=== PATIENT | female | born 1990 ===

== ENCOUNTER 2018-10-06 17:06 | Inpatient (IN) | payer OTHER ==
--- NOTE | 2018-10-06 19:28 | PDOC.FPROB ---
FMR OB H&P: HPI - History of Present Illness Chief Complaint: contractions Indentification: 28 year old at 40.3 wks History of Present Illness: 28 yo G1 @ 40.3 by 1T US c/w LMP. ED10/03/18. Presents with chief complaint of contractions that have been occurring for past several days but have become more frequent. Denies LOF, vaginal bleeding. Feels movement. Says she thinks she lost her mucus plug a few days ago. Complains of urinary frequency and pain with urination since yesterday. No fever , N/V, changes in vision. Primary Care Physician: Carter Rodriguez FMR OB H&P: Current - Care : 1 Para: 0 Gestational age: 40.3 Due date: 10/03/18 Dating Criteria: 1T UT c/w LMP Course/Complications: none - OB Labs Blood type: O RH: positive Antibody Screen: negative HIV: negative RPR: negative HepBsAg: negative Rubella: immune Urine drug screen: negative Gonorrhea: negative Chlamydia: negative 1 hour gtt: 102 A1c: 5.5 GBS: negative H&H: 12.6/36.2 Platelets: 132 Additional labs: zika negative FMR OB H&P: History - Past Medical History PMH: none - OB History OB History: none - Surgical History Sx History: none - Social History Social History: none - Family History Family History: diabetes, HTN, no congenital heart FMR OB H&P: Medications - Current Home Medications: Medication Instructions Recorded Confirmed Type Vit No.129/Iron/Folic 1 tab PO DAILY 10/06/18 10/06/18 History [ One Daily Tablet] Allergies/Adverse Reactions: Allergies Allergy/AdvReac Type Severity Reaction Status Date / Time No Known Allergies Allergy Verified 10/06/18 18:05 FMR OB H&P: Vital Signs - Maternal Vital signs: BP 129/87 HR 86 Afebrile - Heart Tones Baseline: 130 Variability: moderate Acceleration: present (few) Deceleration: absent Category: category 1 [place] contractions every: q6 min FMR OB H&P: Physical Exam - Physical Exam General: NAD, awake, alert and oriented HEENT: MMM Neck: supple Heart: RRR, normal S1/S2 General: CTAB, no respiratory distress Abdomen: soft, gravid, non-tender Musculoskeletal: pulses present, FROM in all four extremities Neurological: no tremor, no focal deficit Skin: no rash, capillary refill <2 seconds Lymphatic: no unusual bruising or bleeding, no purpura Psychiatric: intact recent and remote memory, good judgement and insight, normal mood and affect - Pelvic Exam Vulva: normal hair distribution, no masses, no lesions, no discharge, no blood SVE: 17:00 480/-1 FMR OB H&P: A/P - Problem List (1) Term Current Visit: Yes Status: Acute Code(s): Z34.80 - ENCOUNTER FOR SUPRVSN OF NORMAL , UNSP TRIMESTER (2) Post-dates Current Visit: Yes Status: Acute Code(s): O48.0 - POST-TERM Qualifiers: Post-term type: 40-42 weeks gestation Qualified Code(s): O48.0 - Post-term (3) Dysuria Current Visit: Yes Status: Acute Code(s): R30.0 - DYSURIA Disposition: 28 year old at 40.3 wks presents with contractions 1. Post-dates - at 40.3 wks - initial cervical exam: /-1 - nichole q6 min; moderate intensity - will recheck in 2 hours; if cervical change noted at that time, will admit patient to L&D for expectant management. 2. TIUP - See plan as above 3. Dysuria - UA negative - fluid hydration Dipso: Labor check. Will admit to L&D if patient making change at 2 hours. Discussion: Date/Time: 10/06/181923 This H&P was discussed with Dr. Gamboa who agrees with the above documentation and plan. Signature: Ade Barkley, PGY-2 Addendum - Attending - Attending Attestation Date/Time: 10/07/18 1040 I personally evaluated the patient and discussed the management with Dr. Barkley on 10/06 at time of admission. I agree with and repeated the History, Examination, Assessment and Plan documented above with any addition or exceptions noted below.
[2018-10-06 20:24] LABS: Bilirubin Negative (Negative); Blood, Urine Trace (Negative); Clarity CLEAR (Clear); Glucose, Urine (Dipstick) Negative (Negative); Leukocyte Negative (Negative); Nitrite Negative (Negative); Protein, Urine (Dipstick) Negative (Neg-Trace); Specific Gravity, Urine 1.013 (1.002-1.036); Urobilinogen 0.2 mg/dL (0.2-1.0)
[2018-10-06 20:25] LABS: Bacteria/HPF None Seen HPF (None Seen); Hyaline Casts/LPF 0-3 HYALINE CAST LPF (0-3 Hyaline); Pathc Cast-AUWi Flag 0.43 (0-2.49); Squamous Epithelial 0-3 HPF (0-3); WBC/HPF 0-3 HPF (0-3)
[2018-10-06 20:39] LABS: Transitional Epithelial 0-3 HPF (0-3); Urine Culture Reflex No No
[2018-10-06] MEDS ORDERED: Ondansetron PF 4 MG/2 ML Vial IVP PRN (21:27)
[2018-10-06] MEDS ORDERED: Lidocaine 1% (PF) 30 ML VIAL SC PRN (21:27)
[2018-10-06] MEDS ORDERED: Butorphanol Tartrate 1 MG/ML VIAL SLOW IVP PRN (21:27)
[2018-10-06] MEDS ORDERED: Acetaminophen 500 MG TAB PO PRN (21:27)
[2018-10-06] MEDS ORDERED: Ibuprofen 800 MG TAB PO PRN (21:27)
[2018-10-06] MEDS ORDERED: Promethazine HCl 25 MG/ML VIAL IM PRN (21:27)
[2018-10-06] MEDS ORDERED: NS / Oxytocin 40 units/1000ml 1,000 ML IV PRN (21:27)
[2018-10-06] MEDS ORDERED: Docusate 100 MG CAP PO PRN (21:27)
--- NOTE | 2018-10-06 21:54 | PDOC.LDPN ---
Labor & Delivery Progress Note - Subjective Subjective: comfortable, painful contractions - Objective Vital signs reviewed and normal: yes General: NAD, resting Uterine fundus: non tender SVE: 21:30 by Filippo Dilation: 5 Effacement: 90% Station: -1 FHT: category 1, variability present [place] contractions every: q6 min - Assessment (1) Term Code(s): Z34.80 - ENCOUNTER FOR SUPRVSN OF NORMAL , UNSP TRIMESTER Current Visit: Yes Status: Acute -: 28 year old at 40.3 wks presents with contractions sIUP - at 40.3 wks - contractions q6min - cat 1 strip - cervical bladder changer 2 hour period - plan to admit to L&D for expectant management - networks computer consultant line used to explain plan to patient, all questions answered - patient desires epidural and will notify nurse when she is ready for it Dispo: Admit to L&D for expectant management. PCP notified. Addendum - Attending - Attending Attestation Date/Time: 10/06/182220 I personally evaluated the patient and discussed the management with Dr. Barkley. I agree with and repeated the History, Examination, Assessment and Plan documented above with any addition or exceptions noted below. +cervical change, and had 2 decels, but most recently cat 1 with +accels. Recheck in 2 hours.
[2018-10-06] MEDS: Lactated Ringer's 1,000 ML IV SCH (22:10)
[2018-10-06 22:21] LABS: Hemoglobin 14.5 g/dL (12.0-16.0); Mean Corpuscular HGB CONC 32.8 g/dL (32.0-36.0); Mean Corpuscular Hemoglobin 28.1 pg (27.0-31.0); Mean Corpuscular Volume 85.9 fL (78.0-98.0); Mean Platelet Volume 11.2 fL (7.4-10.4); Platelet Count 162 thou/uL (130-400); RBC Distribution Width 14.1 % (11.5-14.5); Red Blood Cell (RBC) Count 5.15 mill/uL (4.20-5.40); White Blood Cell (WBC) Count 14.5 thou/uL (4.8-10.8)
[2018-10-06 23:01] LABS: Syphilis Antibody Nonreactive (Nonreactive); Syphilis Antibody Index 0.02 S/CO (<1.00 Non-Reactive)
[2018-10-06 23:13] LABS: HBSAg Index 0.36 S/CO (0-0.99); Hep B Surf Ag Non-Reactive S/CO (NonReactive)
--- NOTE | 2018-10-07 03:18 | PDOC.LDPN ---
Labor & Delivery Progress Note - Subjective Subjective: comfortable, painful contractions - Objective Vital signs reviewed and normal: yes General: NAD, breathing through contractions Uterine fundus: non tender SVE: 2:10 Dilation: 6 Effacement: 100% Station: -1 FHT: category 1, variability present [place] contractions every: q4-6 min - Assessment (1) Term Code(s): Z34.80 - ENCOUNTER FOR SUPRVSN OF NORMAL , UNSP TRIMESTER Current Visit: Yes Status: Acute (2) Post-dates Code(s): O48.0 - POST-TERM Current Visit: Yes Status: Acute Qualifiers: Post-term type: 40-42 weeks gestation Qualified Code(s): O48.0 - Post-term (3) Dysuria Code(s): R30.0 - DYSURIA Current Visit: Yes Status: Acute Plan: continue plan of care -: Patient making change without any augmentation. Will recheck in 2 hours. If no cervical change at that time, will consider pitocin for augmentation. This was discussed with patient. Continue expectant management at this time. Addendum - Attending - Attending Attestation Date/Time: 10/07/18 1041 I reviewed the management with Dr. Barkley. I agree with the History, Examination, Assessment and Plan documented above with any addition or exceptions noted below.
--- NOTE | 2018-10-07 04:26 | PDOC.LDPN ---
Labor & Delivery Progress Note - Subjective Subjective: comfortable, painful contractions - Objective Vital signs reviewed and normal: yes General: NAD, resting Uterine fundus: non tender SVE: 4:15 by Filippo Dilation: 6 Effacement: 100% Station: -1 FHT: category 1, variability present [place] contractions every: q3-7 min - Assessment (1) Term Code(s): Z34.80 - ENCOUNTER FOR SUPRVSN OF NORMAL , UNSP TRIMESTER Current Visit: Yes Status: Acute (2) Post-dates Code(s): O48.0 - POST-TERM Current Visit: Yes Status: Acute (3) Dysuria Code(s): R30.0 - DYSURIA Current Visit: Yes Status: Acute Plan: continue plan of care -: Cervix more anterior, otherwise check unchanged. Bulging bag, head well engaged. Consider AROM at next check in 2 hours. If no change at that time, will consider starting pitocin.
[2018-10-07] MEDS: Lactated Ringer's 1,000 ML IV SCH ×2 (05:24→17:13)
--- NOTE | 2018-10-07 07:34 | PDOC.LDPN ---
Labor & Delivery Progress Note - Subjective Subjective: comfortable - Objective Vital signs reviewed and normal: yes General: NAD, resting Uterine fundus: non tender SVE: 6:30 Dilation: 7 Effacement: 100% Station: 0 FHT: category 1, variability present [place] contractions every: q4 min AROM: meconium stained fluid - Assessment (1) Term Code(s): Z34.80 - ENCOUNTER FOR SUPRVSN OF NORMAL , UNSP TRIMESTER Current Visit: Yes Status: Acute (2) Post-dates Code(s): O48.0 - POST-TERM Current Visit: Yes Status: Acute Qualifiers: Post-term type: 40-42 weeks gestation Qualified Code(s): O48.0 - Post-term (3) Dysuria Code(s): R30.0 - DYSURIA Current Visit: Yes Status: Acute Plan: continue plan of care -: AROM at 6:30 AM. Meconium stained fluid. 7/100/0. Recheck at 8:30 AM. Expectant management. Epidural if desired. Addendum - Attending - Attending Attestation Date/Time: 10/07/18 1406 I personally evaluated the patient and discussed the management with Dr. Barkley. I agree with the History, Examination, Assessment and Plan documented above with any addition or exceptions noted below. José Miguel to attend delivery 2/2 MSAF.
--- NOTE | 2018-10-07 08:39 | PDOC.LDPN ---
Labor & Delivery Progress Note - Subjective Subjective: comfortable, painful contractions - Objective Vital signs reviewed and normal: yes General: NAD, resting Uterine fundus: non tender Effacement: 100% Station: 0 FHT: category 1, early decelerations, variability present [place] contractions every: 2-3min AROM: meconium stained fluid (0630) IUPC placed: yes - Assessment (1) Post-dates Code(s): O48.0 - POST-TERM Current Visit: Yes Status: Acute Qualifiers: Post-term type: 40-42 weeks gestation Qualified Code(s): O48.0 - Post-term -: #IUP 40.4 wks in labor - /0 - few early decels - moderate variability, accels present, Cat 1 strip - AROM at 0630, mec stained fluid - IUPC placed - expectant management Addendum - Attending - Attending Attestation Date/Time: 10/07/18 1047 I personally evaluated the patient and discussed the management with Dr. Rodriguez. I agree with and repeated the History, Examination, Assessment and Plan documented above with any addition or exceptions noted below.
[2018-10-07] MEDS ORDERED: NS w/ Oxytocin 10 units 500 ML ONE (09:32)
--- NOTE | 2018-10-07 09:53 | PDOC.EVN ---
Event Note - Event Note Event Note: MVU 145 max will start pitocin at low dose to augment due for check at 1030 Cat 1 strip, few early decels Addendum - Attending - Attending Attestation Date/Time: 10/07/18 1047 I personally evaluated the patient and discussed the management with Dr. Rodriguez. I agree with the History, Examination, Assessment and Plan documented above with any addition or exceptions noted below.
[2018-10-07] MEDS ORDERED: NS w/ Oxytocin 10 units 500 ML IV SCH (10:00)
--- NOTE | 2018-10-07 10:29 | PDOC.LDPN ---
Labor & Delivery Progress Note - Subjective Subjective: painful contractions - Objective Vital signs reviewed and normal: yes General: NAD, breathing through contractions Dilation: 9 Effacement: 100% Station: 0 FHT: category 1 [place] contractions every: q2-3min AROM: meconium stained fluid IUPC placed: yes - Assessment (1) Post-dates Code(s): O48.0 - POST-TERM Current Visit: Yes Status: Acute Qualifiers: Post-term type: 40-42 weeks gestation Qualified Code(s): O48.0 - Post-term -: #IUP 40.4 wks in labor - 0 - few early decels - moderate variability, accels present, Cat 1 strip - AROM at 0630, mec stained fluid - IUPC placed 0830 - On pitocin at 4, MVUs >250 - expectant management Addendum - Attending - Attending Attestation Date/Time: 10/07/18 1048 I personally evaluated the patient and discussed the management with Dr. Rodriguez. I agree with the History, Examination, Assessment and Plan documented above with any addition or exceptions noted below. No MSAF on my previous exam. Will ask mc to attend regardless. Remains cat 1 with accels, to scalp stim also.
[2018-10-07 12:51] LABS: Actual Bicarbonate (HCO3a) 27.3 mEq/L (22-28); Analyzer IN Cardio OR; Base Excess (BEa) -1.5 mEq/L (-2.0 to +3.0)
[2018-10-07] MEDS ORDERED: NS / Oxytocin 40 units/1000ml 1,000 ML IV SCH (14:00)
[2018-10-07] MEDS ORDERED: Bisacodyl 10 MG SUPP PR PRN (14:00)
[2018-10-07] MEDS ORDERED: diphenhydrAMINE 25 MG CAP PO PRN (14:00)
[2018-10-07] MEDS ORDERED: Milk Of Magnesia 30 ML UDCUP PO PRN (14:00)
[2018-10-07] MEDS ORDERED: Preparation H Ointment 28 GM TUBE PR PRN (14:00)
[2018-10-07] MEDS ORDERED: Lanolin Ointment 7 GM TUBE TOP PRN (14:00)
[2018-10-07] MEDS ORDERED: Ondansetron PF 4 MG/2 ML Vial IVP PRN (14:00)
[2018-10-07] MEDS: Ibuprofen 800 MG TAB PO SCH ×2 (16:24→21:09)
[2018-10-07] MEDS: Ferrous Sulfate 325 MG TAB PO SCH (17:13)
[2018-10-07] MEDS ORDERED: Lidocaine 1% (PF) 30 ML VIAL ONE (18:36)
[2018-10-07] MEDS: Docusate Calcium (SURFAK) 240 MG CAP PO SCH (21:09)
[2018-10-08] MEDS: Ibuprofen 800 MG TAB PO SCH ×3 (06:19→21:43)
--- NOTE | 2018-10-08 08:04 | PDOC.PP ---
Post Progress Note Post Day #: 1 Subjective: Patient states she is feeling well overall this morning. She is having some trouble with , was counseled and is consulted. Patient denies any N/V/D, no lightheadedness, or weakness. Patient soaked through vaginal packing after delivery yesterday but after this states she has had less bleeding than a normal menses. She states she is having no trouble urinating but has not had a BM as of yet. She is ambulating and eating without difficulty. PO intake tolerated: yes Flatus: no Ambulation: yes Vital Signs (12 hours) Temp Pulse Resp BP Pulse Ox 10/08/18 06:00 97.9 F 96 18 112/62 96 10/08/18 00:35 98.1 F 89 18 96/54 L 97 10/07/18 20:45 90 18 99/56 L 97 Weight Weight 62.142 kg - Physical Examination General: NAD Cardiovascular: no m/r/g, RRR Respiratory: clear to auscultation bilaterally, non-labored breathing Abdominal: + bowel sounds, no distention Fundus firm & at: 1cm below umbilicus Extremities: negative homans (B) Perineum: minimal bleeding in pad, minimal swelling Psychiatric: A&Ox3, normal affect Result Diagrams: 10/08/18 07:34 Additional Labs: Post Labs Blood Type O POSITIVE 10/06/18 21:34 Hep Bs Antigen Non-Reactive S/CO (NonReactive) 10/06/18 21:34 (1) Post-dates Code(s): O48.0 - POST-TERM Status: Acute Qualifiers: Post-term type: 40-42 weeks gestation Qualified Code(s): O48.0 - Post-term (2) care and examination Code(s): Z39.2 - ENCOUNTER FOR ROUTINE FOLLOW-UP Status: Acute - Assessment/Plan #Post day 1 - consulted - ambulating - 0330 AM hgb pending, called lab states they will send for draw - vital signs appropriate - , will stay minimum 48hrs # 3rd degree vaginal laceration - hemostatic - urinating w/o difficulty - no BM yet, on docusate BID - needs BM before dc/ Code: full diet: regular fluids: tko Dispo: 1-2 days Addendum - Attending - Attending Attestation Date/Time: 10/08/18 7792 I personally evaluated the patient and discussed the management with Dr. Rodriguez. I agree with and repeated the History, Examination, Assessment and Plan documented above with any addition or exceptions noted below. I was called yesterday because of VB. Returned patient to L&D and performed exam with Dr. Ho. No bleeding noted at that time and no hematoma forming. This AM doing well as above. Continue stool softener and monitor.
[2018-10-08 08:14] LABS: Hemoglobin 10.4 g/dL (12.0-16.0); Mean Corpuscular HGB CONC 32.3 g/dL (32.0-36.0); Mean Corpuscular Hemoglobin 28.2 pg (27.0-31.0); Mean Corpuscular Volume 87.4 fL (78.0-98.0); Mean Platelet Volume 11.3 fL (7.4-10.4); Platelet Count 125 thou/uL (130-400); RBC Distribution Width 14.2 % (11.5-14.5); Red Blood Cell (RBC) Count 3.67 mill/uL (4.20-5.40); White Blood Cell (WBC) Count 15.9 thou/uL (4.8-10.8)
[2018-10-08] MEDS ORDERED: Adacel (T-DAP) 0.5 ML SYRINGE IM ONE (09:00)
[2018-10-08] MEDS: Ferrous Sulfate 325 MG TAB PO SCH ×2 (09:22→16:57)
[2018-10-08] MEDS: Docusate Calcium (SURFAK) 240 MG CAP PO SCH ×2 (09:25→21:44)
[2018-10-08] MEDS: Prenatal Vitamin 1 TAB PO SCH (09:25)
[2018-10-09] MEDS: Ibuprofen 800 MG TAB PO SCH ×2 (06:08→14:22)
--- NOTE | 2018-10-09 07:31 | PDOC.PP ---
Post Progress Note Post Day #: 2 Subjective: Patient states she is feeling well this morning. She is concerned about the trouble she is having with . Baby is not latching well and only tries for 5-10 minutes before once again sleeping. The patient states she is otherwise feelings well. Eating well. Had BM x2 yesterday, not painful, soft. She states she had a small amount of blood with wiping. No difficulty urinating. Ambulating well. Less bleeding than with menses. Denies feelings of weakness or lightheadedness. PO intake tolerated: yes Flatus: yes Ambulation: yes Vital Signs (12 hours) Temp Pulse Resp BP 10/08/18 19:55 98.1 F 92 18 112/56 L Weight Weight 62.142 kg - Physical Examination General: NAD Cardiovascular: no m/r/g, RRR Respiratory: clear to auscultation bilaterally, non-labored breathing Abdominal: + bowel sounds, appropriately TTP Fundus firm & at: 1 cm below umbilicus Extremities: negative homans (B) Neurological: no gross focal deficits Psychiatric: A&Ox3, normal affect Result Diagrams: 10/08/18 07:34 Additional Labs: Post Labs Blood Type O POSITIVE 10/06/18 21:34 Hep Bs Antigen Non-Reactive S/CO (NonReactive) 10/06/18 21:34 (1) Post-dates Code(s): O48.0 - POST-TERM Status: Acute Qualifiers: Post-term type: 40-42 weeks gestation Qualified Code(s): O48.0 - Post-term (2) care and examination Code(s): Z39.2 - ENCOUNTER FOR ROUTINE FOLLOW-UP Status: Acute - Assessment/Plan #Post day 2 - consulted, difficulty with - ambulating - hgb 14.5-> 10.5, asymptomatic, VSS - # 3rd degree vaginal laceration - hemostatic - urinating w/o difficulty - soft BM x2, minimal bleeding - continue docusate Code: full diet: regular fluids: tko Dispo: 1 day Addendum - Attending - Attending Attestation Date/Time: 10/09/182102 I personally evaluated the patient and discussed the management with Dr. Rodriguez I agree with the History, Examination, Assessment and Plan documented above with any addition or exceptions noted below. Meeting appropriate milestones. had had 2 soft BMs to see today prior to discharge. Can d/c later today. Continue bowel regimen.
[2018-10-09] MEDS: Ferrous Sulfate 325 MG TAB PO SCH ×2 (07:59→17:34)
[2018-10-09 08:23] VITALS: BP 107/57; TEMP 98.3
[2018-10-09] MEDS: Docusate Calcium (SURFAK) 240 MG CAP PO SCH (09:25)
[2018-10-09] MEDS: Prenatal Vitamin 1 TAB PO SCH (09:25)
--- NOTE | 2018-10-09 09:52 | DN ---
DATE OF PROCEDURE: 10/07/2018 DELIVERY PHYSICIAN: Dr. Carter Rodriguez, Shannan Worthington MD ATTENDING PHYSICIAN: Daryn Gamboa MD. PROCEDURE: Spontaneous vaginal delivery. ANESTHESIA: Local for repair. QBL: 680 mL. PREOPERATIVE DIAGNOSIS: Term intrauterine , in labor. POSTOPERATIVE DIAGNOSIS: Term intrauterine , delivered. INDICATIONS: A 28-year-old, G1, P0, presented in active labor and was admitted to L and D. DELIVERY NOTE: This is a 28-year-old female, G1, P1-0-0-1 at 40 and 4 weeks, who delivered a viable female infant at 12:38 on 10/07/2018. Following an uneventful antepartum course, a vigorous female infant was delivered over the perineum in the left occiput anterior position. Anterior shoulder and then the remainder of body were delivered. One nuchal cord was reduced before delivery. The head was held down and the mouth and nares were bulb suctioned. Cord clamped and cut and cord blood collected, cord gas also obtained. Placenta delivered intact with a three-vessel cord noted. Fundal massage was performed and fundus was firm. The cervix and the vagina were inspected and found to have a third-degree vaginal laceration as well as first degree on the right sidewall. See operative note for these repairs. This infant went to the Nursery in good condition for routine care. Apgars were 7 and 9 at 1 and 5 minutes respectively. The patient tolerated the delivery well and went to after routine recovery and care. Job ID: [id number] Attending addendum: I was present for the entire delivery. MIKE
--- NOTE | 2018-10-09 14:50 | OP ---
DATE OF PROCEDURE: 10/07/2018 ATTENDING PHYSICIAN: Daryn Gamboa MD PROCEDURE: Third-degree vaginal laceration repair. ANESTHESIA: Local, lidocaine 15 mL of 1% with epinephrine. DESCRIPTION OF PROCEDURE: After the delivery, perineum was examined and found to have third-degree laceration. The laceration was at the 7 o'clock position and extended to the capsule of the rectum, but did not affecting the capsule. Sphincter tone was found to be intact on exam. Either side of the external anal sphincter were grasped with Aliss clamps to robin their location. Two [id number] knots with 2-0 Vicryl were used to repair the external sphincter. After this, two more [id number] knots using 2-0 Vicryl were used to approximate the fascial layer above the muscle. Following this, the fascial and muscle layer were well approximated and we were left with essentially a second-degree perineal laceration. This was repaired with a running 3-0 chromic stitch. Upon repair of the superior laceration, crown stitch was thrown and we transferred into the next layer. This was repaired in a running non-locking fashion.Subcuticular knots were used to repair the external layer. Good hemostasis was noted and lack of space was also appreciated. After this, a first-degree sidewall tear was noted to have persistent bleeding and was repaired with 3-0 chromic in a running non-locking fashion. Following this , we examined the cervix and the rest of the vaginal fault and found only slight oozing at various places, so a vaginal pack was put in place and monitored throughout course. Job ID: [id number] [facility]
== END 2018-10-09 18:40 | disposition home or self-care (01) | DRG 768 ==
LOC: L&D/OP 17:06 → L&D 21:39 → 3SW 10-07 15:39
PROVIDERS: ADMIT Emergency Medicine; ATTEND Emergency Medicine
PROC: 10E0XZZ Delivery of Products of Conception, External Approach (ICD-10-PCS; principal; 2018-10-07)
PROC: 0DQR0ZZ Repair Anal Sphincter, Open Approach (ICD-10-PCS; 2018-10-07)
PROC: 10907ZC Drainage of Amniotic Fluid, Therapeutic from Products of Conception, Via Natural or Artificial Opening (ICD-10-PCS; 2018-10-07)
DX: O48.0 Post-term pregnancy (principal); Z37.0 Single live birth; O70.20 Third degree perineal laceration during delivery, unspecified; O69.81X0 Labor and delivery complicated by cord around neck, without compression, not applicable or unspecified; Z3A.40 40 weeks gestation of pregnancy; R30.0 Dysuria; O75.89 Other specified complications of labor and delivery; O77.0 Labor and delivery complicated by meconium in amniotic fluid
CPT/HCPCS: 36415; 81001; 82805; 85027; 86780; 86850; 86900; 86901; 87340; 99285; J2001

== ENCOUNTER 2018-10-13 11:02 | Inpatient (IN) | payer OTHER ==
[2018-10-13 14:10] LABS: #Lymphocytes 0.9 thou/uL (1.20-3.40); #Monocytes 0.8 thou/uL (0.11-0.59); #Neutrophils 9.3 thou/uL (1.40-6.50); %Basophils 0.1 % (0.0-1.0); %Eosinophils 0.3 % (0.0-10.0); %Lymphocytes 7.8 % (21.0-51.0); %Monocytes 7.4 % (0.0-10.0); %Neutrophils 84.5 % (42.0-75.0); Hemoglobin 11.7 g/dL (12.0-16.0); Mean Corpuscular HGB CONC 33.5 g/dL (32.0-36.0); Mean Corpuscular Hemoglobin 28.8 pg (27.0-31.0); Mean Corpuscular Volume 85.8 fL (78.0-98.0); Mean Platelet Volume 9.2 fL (7.4-10.4); Platelet Count 224 thou/uL (130-400); RBC Distribution Width 13.5 % (11.5-14.5); Red Blood Cell (RBC) Count 4.06 mill/uL (4.20-5.40); White Blood Cell (WBC) Count 11.1 thou/uL (4.8-10.8)
[2018-10-13 14:29] LABS: ALT (SGPT) 30 U/L (8-55); AST (SGOT) 20 U/L (5-34); Albumin 3.3 g/dL (3.5-5.0); Alkaline Phosphatase 122 U/L (40-150); Anion Gap 13 mmol/L (10-20); BUN (Urea Nitrogen) 8 mg/dL (7.0-18.7); Bilirubin, Total 0.3 mg/dL (0.2-1.2); Calc. Creatinine Clearance 0 mL/min (70-130); Calcium 8.2 mg/dL (7.8-10.44); Carbon Dioxide 23 mmol/L (22-29); Chloride 106 mmol/L (98-107); Estimated GFR-MDRD Greater than 90; Glucose 66 mg/dL (70-105); Potassium 3.3 mmol/L (3.5-5.1); Protein, Total 6.3 g/dL (6.0-8.3); Sodium 139 mmol/L (136-145)
[2018-10-13 14:39] LABS: Bacteria/HPF None Seen HPF (None Seen); Bilirubin Negative (Negative); Blood, Urine Large (Negative); Clarity CLEAR (Clear); Glucose, Urine (Dipstick) Negative (Negative); Hyaline Casts/LPF 0-3 HYALINE CAST LPF (0-3 Hyaline); Leukocyte Moderate (Negative); Nitrite Negative (Negative); Pathc Cast-AUWi Flag 0.14 (0-2.49); Protein, Urine (Dipstick) Negative (Neg-Trace); Specific Gravity, Urine 1.014 (1.002-1.036); Squamous Epithelial 0-3 HPF (0-3); WBC/HPF 21-50 HPF (0-3); pH, Urine 6.5 (5.0-9.0)
[2018-10-13] MEDS ORDERED: Lidocaine 1% w/Epinephrine 1:100K 20 ML VIAL ONE (14:51)
[2018-10-13 14:53] LABS: Renal Epithelial None Seen HPF (0-3); Transitional Epithelial NONE SEEN HPF (0-3)
[2018-10-13] MEDS ORDERED: Piperacillin/Tazobactam 4.5 GM VIAL ONE (15:43)
[2018-10-13] MEDS ORDERED: Acetaminophen 500 MG TAB ONE (15:54)
--- NOTE | 2018-10-13 15:54 | PDOC.FPROB ---
FMR OB H&P: HPI - History of Present Illness Chief Complaint: fever, abdominal pain Indentification: 28 yo female PPD # 6 History of Present Illness: 28 yo post day 6, delivered ~12:30 on 10/07 . Third degree repaired. Reports she was in normal state of health when she began having lower abdominal pain and fever 100.9 last night. Small clots, not sure of color, but no discharge. No dysuria and she has been having normal BM, taking docusate bowel regimen. Denies intercourse. Primary Care Physician: ELIZABETH Rodriguez FMR OB H&P: Current - Care : 1 Para: 1 - OB Labs Blood type: O RH: positive Antibody Screen: negative HIV: negative RPR: negative HepBsAg: negative Rubella: immune Urine drug screen: negative Gonorrhea: negative Chlamydia: negative GBS: negative FMR OB H&P: History - OB History OB History: 10/07/18 FMR OB H&P: Medications - Current Home Medications: Medication Instructions Recorded Confirmed Type Vit No.129/Iron/Folic 1 tab PO DAILY 10/06/18 10/06/18 History [ One Daily Tablet] Docusate Calcium [Surfak] 240 mg PO BID 7 Days #14 cap 10/09/18 10/14/18 Rx Allergies/Adverse Reactions: Allergies Allergy/AdvReac Type Severity Reaction Status Date / Time No Known Allergies Allergy Verified 10/06/18 18:05 FMR OB H&P: ROS - Review of Systems General: reports: fever/chills Gastrointestinal: reports: abdominal pain. denies: vomiting, diarrhea, constipation Genitourinary (Female): reports: vaginal bleeding (small clots, unsure of color) . denies: vaginal discharge Breast: reports: other (full feeling) FMR OB H&P: Vital Signs - Maternal Vital signs: 124/84 89 bpm RR: 18 Temp: 100.5 O2sat: 97% on RA FMR OB H&P: Physical Exam - Physical Exam General: awake, alert and oriented Breast: other (mildly tender, full feeling) Heart: RRR, normal S1/S2 General: CTAB, no respiratory distress Abdomen: other (lower left quadrant TTP with guarding) Lymphatic: no unusual bruising or bleeding - Pelvic Exam Vulva: normal hair distribution (significant bleeding from third degree site with tracking approx 1.5cm; no communication or fistula to rectum; rectum had no pain on LUTHER. vaginal exam causing significant pain, unable to visualize cervix, but no sign of infection of vaginal wall or other visualized vaginal tissue) FMR OB H&P: Results - Labs Lab results: Laboratory Results - last 24 hr 10/13/18 10/13/18 10/13/18 13:56 13:57 13:57 WBC 11.1 H RBC 4.06 L Hgb 11.7 L Hct 34.8 L MCV 85.8 MCH 28.8 MCHC 33.5 RDW 13.5 Plt Count 224 MPV 9.2 Neutrophils % 84.5 H Lymphocytes % 7.8 L Monocytes % 7.4 Eosinophils % 0.3 Basophils % 0.1 Neutrophils # 9.3 H Lymphocytes # 0.9 L Monocytes # 0.8 H Eosinophils # 0.0 Basophils # 0.0 Sodium 139 Potassium 3.3 L Chloride 106 Carbon Dioxide 23 Anion Gap 13 BUN 8 Creatinine 0.65 Estimated GFR (MDRD) Greater than 90 Glucose 66 L Calcium 8.2 Total Bilirubin 0.3 AST 20 ALT 30 Alkaline Phosphatase 122 Serum Total Protein 6.3 Albumin 3.3 L Globulin 3.0 Albumin/Globulin Ratio 1.1 L Procalcitonin Prolactin 80.27 H Urine Color Urine Clarity Urine pH Ur Specific Ros[place] Urine Protein Urine Glucose (UA) Urine Ketones Urine Blood Urine Nitrite Urine Bilirubin Urine Urobilinogen Ur Leukocyte Esterase Urine RBC Urine WBC Ur Squamous Epith Cells Ur Transition Epith Cell Ur Renal Epithelial Cell Urine Bacteria Hyaline Casts 10/13/18 10/13/18 13:57 14:16 WBC RBC Hgb Hct MCV MCH MCHC RDW Plt Count MPV Neutrophils % Lymphocytes % Monocytes % Eosinophils % Basophils % Neutrophils # Lymphocytes # Monocytes # Eosinophils # Basophils # Sodium Potassium Chloride Carbon Dioxide Anion Gap BUN Creatinine Estimated GFR (MDRD) Glucose Calcium Total Bilirubin AST ALT Alkaline Phosphatase Serum Total Protein Albumin Globulin Albumin/Globulin Ratio Procalcitonin 0.04 Prolactin Urine Color YELLOW Urine Clarity CLEAR Urine pH 6.5 Ur Specific Rosine 1.014 Urine Protein Negative Urine Glucose (UA) Negative Urine Ketones 80 H Urine Blood Large H Urine Nitrite Negative Urine Bilirubin Negative Urine Urobilinogen 1.0 Ur Leukocyte Esterase Moderate H Urine RBC 4-6 Urine WBC 21-50 H Ur Squamous Epith Cells 0-3 Ur Transition Epith Cell NONE SEEN Ur Renal Epithelial Cell None Seen Urine Bacteria None Seen Hyaline Casts 0-3 HYALINE CAST FMR OB H&P: A/P - Problem List (1) Endometritis Current Visit: Yes Status: Acute Code(s): N71.9 - INFLAMMATORY DISEASE OF UTERUS, UNSPECIFIED (2) Wound dehiscence Current Visit: Yes Status: Acute Code(s): T81.30XA - DISRUPTION OF WOUND, UNSPECIFIED, INITIAL ENCOUNTER (3) Hypokalemia Current Visit: Yes Status: Acute Code(s): E87.6 - HYPOKALEMIA Assessment and Plan: replace Disposition: Based on history and exam, we will plan to admit patient for IV abx, zosyn and doxycycline. Blood, urine, wound cultures. CBC, CMP, GCC, VP3, UA also done. Will admit to women's floor for evaluation. Once patient is stable, plan to discuss with Laborist for evaulation of timing of repair. Will also replace potassium. Discussion: Date/Time: 10/13/18 8030 This H&P was discussed with [] and [] who agree with the above documentation and plan. Addendum - Attending - Attending Attestation Date/Time: 10/13/18 6115 I personally evaluated the patient and discussed the management with Dr. Rosales I agree with the History, Examination, Assessment and Plan documented above with any addition or exceptions noted below. 28 yo female s/p complicated by 3rd degree laceration on 10/07/18. PPD#6 Patient reports abdominal pain, fever (100.9), chills, vaginal pain, vaginal odor, and vaginal discharge since yesterday. Reports pain with walking and sitting. Abdominal pain located in lower quadrants. Tender to touch. Worse with movement. Has only taken pain medication. Reports symptoms were not present at time of discharge on Tuesday. Denies abnormal vaginal bleeding or urinary/bowel incontinence. VS reviewed. Labs reviewed. Agree with PE. 2nd degree wound dehiscence and 2 cm area of superficial necrosis noted. Tender on exam. Otherwise normal vaginal tissue. Partial disruption of perineal body. Transverse perineal muscles intact. External sphincter intact with good tone. No communicating tracts on exam. No sutures in rectal or anal verge. Small abscess pocket distrupted digitally. Cultures taken. Fundus firm. Tender throughout. Voluntary and involuntary guarding. No rebound. 1. 3rd degree vaginal laceration complication: Now with 2nd degree dehiscence and necrosis. Will consult DIRECTOR TELEVISION hospitalist for debridement and revision. Will consider mild delayed closure of 48 hour vs closure today after debridement. Cultures obtained: VP3, CT, GC, general. Antibiotics started. 2. Moderated post- endometritis: Empiric IV antibodies. Cultures sent. Blood pending. Labs pending. GBS negative. Likely switch to oral antibiotics in 24 to 48 hours due to complications. Monitor. Treat symptoms. 3. Breast feeding: Aid kilo. Breast pump as needed to decrease risk of engorgement/mastitis. Will discuss case and exam with Dr. Valle. Will follow up with debridement today. Laurence.
[2018-10-13] MEDS ORDERED: Lidocaine 1% (PF) 30 ML VIAL ONE (17:24)
--- NOTE | 2018-10-13 18:35 | PDOC.EVN ---
Event Note - Event Note Event Note: OBGYN Consult and PROCEDURE Case reviewed with Dr Melara and Ignacia Rodriguez. Brief History: S/P 6 days with a 3rd degree lac, repaired by Dacia Rodriguez. Admitted now with likely PP metritis and 2nd degree possible breakdown. To L&D for better exam and repair. Time: 4972-7953 Location: R 6 ABX: David and Suzi Patient brought up from the ED to LDR 6 for stirrups exam: Preop DX: 6 days with metritis, and galloway[erficial second degree lac breakdown Postop: same as above, and s/p repair Procedure: 1. Perineal/vaginal exam 2. Wound debridement 3. Primary closure of second degree breakdown 4. Digital rectal Exam Surgeon: Leonard Director Of Social Work: Ignacia Rodriguez Anesthesia: local (20ml) Also in room as "cold strip roller": Celso Melara MD PROCEDURE DETAILS: I performed exam and confirmed a second degree separation, 2 cm "deep" and 3 cm at widest point. Copious prep with beatadine used. The perineal body was intact , no separation of the anal sphincter. After informed consent obtained, I injected 20cc (10ml x 2) 1% lido without epi into the area. 4x4 guage sponges were used to debrie the area...good red, bleeding granulation tissue seen. I reapproximated the area with 2-0 monocryl and a single interrupted sticth of 2- 0 vicrl on the skin. Patient did not feel the procedure. At end of repair, I performed a LUTHER and found no rectal involvement. Counts correct Complications; none PLAN: Continue IV ABX. I told the patient of increased risk of possible recurrent breakdown. We will watch closely for first 2 weeks .
--- NOTE | 2018-10-13 18:44 | PDOC.EVN ---
Event Note - Event Note Event Note: To whom it may concern, Patient Flory Thapa has been admitted to the hospital on the night of 10/13/18 for complications arising from her recent delivery. Anticipated hospital course in 2-3 days. Her significant other, Conrad Ontiveros should be excused from work during the course of her hospitalization to assist in caring for her and their . Please feel free to contact me with concerns Dr. Carter Rodriguez [facility] Post- dept: [phone]
[2018-10-13] MEDS ORDERED: Acetaminophen 325 MG TAB PO PRN (19:07)
[2018-10-13] MEDS ORDERED: Ibuprofen 800 MG TAB PO PRN (19:07)
[2018-10-13] MEDS ORDERED: Potassium Chloride 20 MEQ TAB PO SCH (19:15)
[2018-10-13] MEDS ORDERED: Acetaminophen 650 MG Suppository PR PRN (20:38)
[2018-10-13] MEDS ORDERED: Ondansetron ODT 4 MG TAB PO PRN (20:38)
[2018-10-13] MEDS: Sodium Chloride 0.9% 1,000 ML IV SCH (22:10)
[2018-10-14] MEDS: Piperacillin/Tazobactam 3.375 GM in Sodium Chloride 0.9% 100 ML IVPB SCH ×4 (00:43→22:25)
[2018-10-14 06:19] LABS: #Eosinphils 0.1 thou/uL (0.0-0.7); #Lymphocytes 1.3 thou/uL (1.20-3.40); %Basophils 0.5 % (0.0-1.0); %Eosinophils 0.8 % (0.0-10.0); %Lymphocytes 15.2 % (21.0-51.0); %Monocytes 11.5 % (0.0-10.0); Hemoglobin 11.1 g/dL (12.0-16.0); Mean Corpuscular HGB CONC 33.1 g/dL (32.0-36.0); Mean Corpuscular Hemoglobin 28.9 pg (27.0-31.0); Mean Corpuscular Volume 87.3 fL (78.0-98.0); Mean Platelet Volume 9.1 fL (7.4-10.4); Platelet Count 214 thou/uL (130-400); RBC Distribution Width 13.6 % (11.5-14.5); Red Blood Cell (RBC) Count 3.86 mill/uL (4.20-5.40); White Blood Cell (WBC) Count 8.3 thou/uL (4.8-10.8)
[2018-10-14] MEDS ORDERED: Potassium Chloride 20 MEQ TAB PO SCH (08:00)
[2018-10-14] MEDS: Polyethylene Glycol 3350 17 GM Packet PO SCH (08:18)
[2018-10-14] MEDS: Prenatal Vitamin 1 TAB PO SCH (08:18)
[2018-10-14] MEDS: Docusate 100 MG CAP PO SCH ×2 (08:18→20:26)
[2018-10-14] MEDS: Sodium Chloride 0.9% 1,000 ML IV SCH ×2 (08:19→12:16)
[2018-10-14] MEDS ORDERED: Enoxaparin Sodium 40 MG/0.4 ML SYRINGE SC SCH (09:00)
--- NOTE | 2018-10-14 09:12 | PDOC.OBPPN ---
FMR OB PN: Subj - Interval History Hospital Day: 1 Day: 7 Chief Complaint: wound dehiscence Indentification: deliverd at 40.4 wks by w/ 3rd degree tear Interval History: OVernight feels well, minimal bleeding, eating, ambulating, pain resolved FMR OB PN: Obj - Maternal Vital signs: BP: 112/70 HR: 73 RR: 18 Tmax: 98.4 Pox: 98% on RA - Lochia Lochia: minimal bleeding FMR OB PN: Exam - Physical Exam General: NAD, awake, alert and oriented HEENT: normocephalic and atraumatic, PERRLA Neck: supple Breast: symmetric, non-tender Heart: RRR, normal S1/S2, no murmurs/rubs/gallops General: CTAB, no respiratory distress, good air movement Abdomen: soft, fundus(cm) (2-3 cm below umbilicus), non-tender (no pain to deep palpation) Musculoskeletal: normal gait and station, pulses present Neurological: cranial nerves II through XII intact Skin: no rash, capillary refill <2 seconds Psychiatric: intact recent and remote memory - Pelvic Exam : perineal incision/laceration healing well (minimal bleeding, no pain ), sutures intact, non-tender, no edema FMR OB PN: Data - Labs Lab results: Laboratory Results - last 24 hr 10/13/18 10/13/18 10/13/18 13:56 13:57 13:57 WBC 11.1 H RBC 4.06 L Hgb 11.7 L Hct 34.8 L MCV 85.8 MCH 28.8 MCHC 33.5 RDW 13.5 Plt Count 224 MPV 9.2 Neutrophils % 84.5 H Lymphocytes % 7.8 L Monocytes % 7.4 Eosinophils % 0.3 Basophils % 0.1 Neutrophils # 9.3 H Lymphocytes # 0.9 L Monocytes # 0.8 H Eosinophils # 0.0 Basophils # 0.0 Sodium 139 Potassium 3.3 L Chloride 106 Carbon Dioxide 23 Anion Gap 13 BUN 8 Creatinine 0.65 Estimated GFR (MDRD) Greater than 90 Glucose 66 L Calcium 8.2 Total Bilirubin 0.3 AST 20 ALT 30 Alkaline Phosphatase 122 Serum Total Protein 6.3 Albumin 3.3 L Globulin 3.0 Albumin/Globulin Ratio 1.1 L Procalcitonin Prolactin 80.27 H Urine Color Urine Clarity Urine pH Ur Specific [place] Urine Protein Urine Glucose (UA) Urine Ketones Urine Blood Urine Nitrite Urine Bilirubin Urine Urobilinogen Ur Leukocyte Esterase Urine RBC Urine WBC Ur Squamous Epith Cells Ur Transition Epith Cell Ur Renal Epithelial Cell Urine Bacteria Hyaline Casts 10/13/18 10/13/18 10/14/18 13:57 14:16 06:05 WBC 8.3 RBC 3.86 L Hgb 11.1 L Hct 33.7 L MCV 87.3 MCH 28.9 MCHC 33.1 RDW 13.6 Plt Count 214 MPV 9.1 Neutrophils % 72.0 Lymphocytes % 15.2 L Monocytes % 11.5 H Eosinophils % 0.8 Basophils % 0.5 Neutrophils # 6.0 Lymphocytes # 1.3 Monocytes # 1.0 H Eosinophils # 0.1 Basophils # 0.0 Sodium Potassium Chloride Carbon Dioxide Anion Gap BUN Creatinine Estimated GFR (MDRD) Glucose Calcium Total Bilirubin AST ALT Alkaline Phosphatase Serum Total Protein Albumin Globulin Albumin/Globulin Ratio Procalcitonin 0.04 Prolactin Urine Color YELLOW Urine Clarity CLEAR Urine pH 6.5 Ur Specific [place] 1.014 Urine Protein Negative Urine Glucose (UA) Negative Urine Ketones 80 H Urine Blood Large H Urine Nitrite Negative Urine Bilirubin Negative Urine Urobilinogen 1.0 Ur Leukocyte Esterase Moderate H Urine RBC 4-6 Urine WBC 21-50 H Ur Squamous Epith Cells 0-3 Ur Transition Epith Cell NONE SEEN Ur Renal Epithelial Cell None Seen Urine Bacteria None Seen Hyaline Casts 0-3 HYALINE CAST FMR OB PN: A/P - Problem List (1) Endometritis Current Visit: Yes Status: Acute Code(s): N71.9 - INFLAMMATORY DISEASE OF UTERUS, UNSPECIFIED (2) Wound dehiscence Current Visit: Yes Status: Acute Code(s): T81.30XA - DISRUPTION OF WOUND, UNSPECIFIED, INITIAL ENCOUNTER Discussion: Date/Time: 10/14/18 0911 # Endometritis - cont zosyn/doxy - cultures pending, pre-granger multiple vaginal ana - will await final culture - non-tender to palpation no fevers overnight # Wound dehiscence - repaired 10/13/18 - minimal bleeding, no pain/swelling - healing well Code: full Fluids: TKO Diet: regular Dispo: likely d/c tomorrow AM This H&P was discussed with Dr. Melara who agrees with the above documentation and plan. Addendum - Attending - Attending Attestation Date/Time: 10/14/18 0736 I personally evaluated the patient and discussed the management with Dr. Rodriguez I agree with the History, Examination, Assessment and Plan documented above with any addition or exceptions noted below. 28 yo female s/p complicated by 3rd degree laceration on 10/07/18. PPD#7 No acute changes overnight. Pain much more improved. No fever or chills. Decrease vaginal pain. No longer having foul odor or discharge. No incontinence. VS reviewed. Labs reviewed. Agree with exam above. Perineal incision healing well. Intact. No dehiscence. No drainage. Less tender. Fundus firm and nontender. 1. 3rd degree vaginal laceration complication: s/p washout and repair of 2nd degree dehiscence and necrosis. Cultures reviewed. Will continue empiric antibiodics throughout the day. 2. Moderated post- endometritis: Empiric IV antibodies. Cultures reviewed. BV positive. GBS negative. Likely switch to oral cephalosporin and clinda tomorrow if remains afebrile. Monitor. 3. Breast feeding: Aid kilo. Breast pump as needed to decrease risk of engorgement/mastitis. D/C IVFs. Monitor pain control. Continue IV antibiotics. Laurence.
[2018-10-15] MEDS: Piperacillin/Tazobactam 3.375 GM in Sodium Chloride 0.9% 100 ML IVPB SCH (05:21)
[2018-10-15 06:30] LABS: #Basophils 0.1 thou/uL (0.0-0.2); #Eosinphils 0.3 thou/uL (0.0-0.7); #Lymphocytes 1.6 thou/uL (1.20-3.40); #Monocytes 0.8 thou/uL (0.11-0.59); #Neutrophils 5.7 thou/uL (1.40-6.50); %Basophils 1.1 % (0.0-1.0); %Eosinophils 3.3 % (0.0-10.0); %Lymphocytes 18.7 % (21.0-51.0); %Monocytes 9.1 % (0.0-10.0); %Neutrophils 67.7 % (42.0-75.0); Hemoglobin 10.7 g/dL (12.0-16.0); Mean Corpuscular HGB CONC 32.6 g/dL (32.0-36.0); Mean Corpuscular Hemoglobin 28.5 pg (27.0-31.0); Mean Corpuscular Volume 87.5 fL (78.0-98.0); Platelet Count 213 thou/uL (130-400); RBC Distribution Width 13.6 % (11.5-14.5); Red Blood Cell (RBC) Count 3.74 mill/uL (4.20-5.40); White Blood Cell (WBC) Count 8.4 thou/uL (4.8-10.8)
[2018-10-15 08:21] VITALS: BP 114/72; TEMP 97.7
--- NOTE | 2018-10-15 08:27 | PDOC.PP ---
Post Progress Note Post Day #: 8 Subjective: This morning patient states she is feeling well overall. She has been eating without difficulty. She is ambulating without pain. She denies abdominal pain at rest, denies fevers, chills, or sweats. Had a BM yesterday and states she had very minimal amount of pain. She states she had some bleeding overnight but less than a normal period. PO intake tolerated: yes Flatus: yes Ambulation: yes Vital Signs (12 hours) Temp Pulse Resp BP Pulse Ox 10/15/18 08:20 97.7 F 58 L 16 114/72 99 10/15/18 03:41 98.2 F 10/15/18 00:00 98.2 F 67 16 107/59 L - Physical Examination General: NAD Cardiovascular: no m/r/g, RRR Respiratory: clear to auscultation bilaterally, non-labored breathing Abdominal: + bowel sounds, appropriately TTP Extremities: negative homans (B) Neurological: no gross focal deficits Psychiatric: A&Ox3, normal affect Result Diagrams: 10/15/18 06:21 10/13/18 13:57 (1) Endometritis Code(s): N71.9 - INFLAMMATORY DISEASE OF UTERUS, UNSPECIFIED Status: Acute (2) Wound dehiscence Code(s): T81.30XA - DISRUPTION OF WOUND, UNSPECIFIED, INITIAL ENCOUNTER Status : Acute - Assessment/Plan 28 yo day 8 following w/ 3rd degree perineal laceration # Endometritis - afebrile overnight, white count trending down, no pain to fundal palpation - anticipate home today on keflex - bcx NGTD, positive BV, wound culture multiple vaginal ana - will follow-up final cultures - non-tender to palpation no fevers overnight # Wound dehiscence - repaired 10/13/18 - minimal bleeding, no pain/swelling - healing well Code: full Fluids: TKO Diet: regular Dispo: anticipate home on keflex today This H&P was discussed with Dr. Melara who agrees with the above documentation and plan. Addendum - Attending - Attending Attestation Date/Time: 10/15/18 1311 I personally evaluated the patient and discussed the management with Dr. Rodriguez I agree with the History, Examination, Assessment and Plan documented above with any addition or exceptions noted below. 28 yo female s/p complicated by 3rd degree laceration on 10/07/18. HD# 2 PPD#8 No acute changes overnight. Pain resolved. No incontinence. Mild lochia. VS reviewed. Labs reviewed. Agree with exam above. Perineal incision healing well. Intact. No dehiscence. No drainage. Less tender. Fundus firm and nontender. 1. 3rd degree vaginal laceration complication: s/p washout and repair of 2nd degree dehiscence and necrosis. Cultures reviewed. Switch to PO antibiotics to cover gram neg, gram pos, and anarobes. Treat for total of 10 days. 2. Moderated post- endometritis: s/p Empiric IV antibodies x 48 hours. Cultures reviewed. BV positive. GBS negative. Switch to oral cephalosporin and clinda. Continue for 8 days. Pain resolved. Afebrile. 3. Breast feeding: Aid kilo. Breast pump as needed to decrease risk of engorgement/mastitis. D/C home today. Follow up next week with PCPHayden Dang.
[2018-10-15] MEDS: Polyethylene Glycol 3350 17 GM Packet PO SCH (09:34)
[2018-10-15] MEDS: Docusate 100 MG CAP PO SCH (09:35)
[2018-10-15] MEDS: Prenatal Vitamin 1 TAB PO SCH (09:35)
[2018-10-15 20:43] LABS: Chlamydia by PCR Not Detected (NotDetected); GC by PCR Not Detected (NotDetected)
--- NOTE | 2018-10-16 12:44 | DIS ---
DATE OF ADMISSION: 10/13/2018 DATE OF DISCHARGE: 10/15/2018 RESIDENT: Carter Rodriguez MD ADMITTING ATTENDING: Jaz Melara MD DISCHARGE ATTENDING: Jaz Melara MD CONSULT: AUTOMOTIVE SERVICE WRITER, Dr. Valle. PROCEDURES: Second-degree perineal repair. PRIMARY DIAGNOSES: Endometritis and dehiscence of second-degree perineal laceration. SECONDARY DIAGNOSES: after spontaneous vaginal delivery, history of third-degree perineal laceration. DISCHARGE MEDICATIONS: 1. Keflex. 2. Clindamycin. 3. Docusate. Discontinued medications: None. BRIEF HOSPITAL COURSE: This is a 28-year-old, G1, P1, female, who presented day 6. She had a third-degree perineal laceration, which was repaired after delivery. She complained of fever and passage of small clots. She had vaginal pain, but denied intercourse or purulent discharge. On exam, the patient was found to have dehiscence of the second-degree vaginal tear. This was lavaged and repaired. See operative note. The repair went well. The patient received Zosyn and doxycycline while inpatient. Wound Cultures showed enterococcus and e. coli. The patient was afebrile throughout her time in the hospital. The patient had scant vaginal bleeding during the hospitalization. The patient was ultimately sent home with instructions for 48-hour followup. She was sent home with 5 days of clindamycin and 7 days of Keflex. DISPOSITION: Stable. DISCHARGE INSTRUCTIONS: 1. Location: Home. 2. Diet: Regular. 3. Activity: As tolerated, pelvic rest for 6 weeks. 4. Followup: a. Follow up in 48 hours on 10/17/2018 at [facility]. Also has appointment on 10/20/2018, Dr. Carter Rodriguez. b. For followup, please confirm that the patient is afebrile and that vaginal laceration is healing well with acceptable amount of bleeding. The patient is still less than 14 days , so mild vaginal bleeding is acceptable. Blood cultures were negative. Vaginitis screen showed BV. [facility] ID[facility] [id number] [facility]
== END 2018-10-15 13:20 | disposition home or self-care (01) | DRG 776 ==
LOC: ERS 11:02 → 3SW 16:01
PROVIDERS: ADMIT Student in an Organized Health Care Education/Training Program; ATTEND Student in an Organized Health Care Education/Training Program
PROC: 0WQNXZZ Repair Female Perineum, External Approach (ICD-10-PCS; principal; 2018-10-13)
DX: O86.12 Endometritis following delivery (principal); O90.1 Disruption of perineal obstetric wound; O99.89 Other specified diseases and conditions complicating pregnancy, childbirth and the puerperium; E87.6 Hypokalemia
CPT/HCPCS: 36415; 80053; 81003; 81015; 84145; 84146; 85025; 87040; 87070; 87077; 87086; 87186; 87205; 87480; 87491; 87510; 87591; 87660; 87804; 96365; 96367; J1650; J2001; J2543; J7050

== ENCOUNTER 2020-05-29 09:57 | Outpatient (CLI) | payer OTHER ==
[2020-05-30 12:45] LABS: SARS-CoV-2 MS2 Positive; SARS-CoV-2 N Gene Negative; SARS-CoV-2 S Gene Negative; SARS-CoV-2 by NAA Not Detected (NotDetected); SARS-CoV-2 orf1ab Negative
== END 2020-05-29 09:58 | disposition home or self-care (01) ==
LOC: LABSCS 09:57
PROVIDERS: ATTEND Family Medicine
DX: Z20.828 Contact with and (suspected) exposure to other viral communicable diseases (principal)
CPT/HCPCS: 87635; U0003

== ENCOUNTER 2020-06-01 19:45 | Inpatient (IN) | payer OTHER ==
--- NOTE | 2020-06-01 20:48 | PDOC.FPROB ---
FMR OB H&P: HPI - History of Present Illness Chief Complaint: post dates IOL History of Present Illness: Pt is a 29yo @ 41wks by LMP who present for post dates IOL. She states she has been feeling intermittent contractions with minimal pain. Had mucoid vaginal discharge for the last couple of days. +FM. Denies LOF, vaginal bleeding/pain/itching. Primary Care Physician: LUISA Rodriguez FMR OB H&P: Current - Care : 2 Para: 1 Gestational age: 41.0 Due date: 05/25/20 Dating Criteria: LMP c/w 12.2 wk sono - OB Labs Blood type: O RH: positive Antibody Screen: negative HIV: negative RPR: negative HepBsAg: negative Rubella: immune Gonorrhea: negative Chlamydia: negative 1 hour gtt: 2 hr 70/136/96 GBS: negative H&H: 11.4/33.8 FMR OB H&P: History - Past Medical History PMH: none - OB History OB History: no complications this 1st child born via at term, had 3rd degree vag lac, then had endometritis and vaginal lac dehiscence - Surgical History Sx History: none - Social History Social History: No T/A/D - Family History Family History: mother- no significant Fm Hx father of child has fm hx of DM and HTN FMR OB H&P: Medications - Current Home Medications: Medication Instructions Recorded Confirmed Type Vit No.129/Iron/Folic 1 tab PO DAILY 10/06/18 06/01/20 History [ One Daily Tablet] Allergies/Adverse Reactions: Allergies Allergy/AdvReac Type Severity Reaction Status Date / Time No Known Allergies Allergy Verified 06/01/20 23:21 FMR OB H&P: ROS - Review of Systems General: denies: fever/chills Eyes: denies: vision changes, scotomas, floaters ENT: denies: nasal congestion, rhinorrhea, sore throat Cardiovascular: denies: chest pain, palpitation, edema Respiratory: denies: cough, congestion, shortness of breath Gastrointestinal: denies: abdominal pain, nausea, vomiting, diarrhea Genitourinary (Female): reports: vaginal discharge, contractions. denies: dysuria, vaginal pain, vaginal bleeding Integumentary: denies: itching FMR OB H&P: Vital Signs - Maternal Vital signs: BP 134/76, HR 78 - Heart Tones Baseline: 130 Variability: moderate Acceleration: present Deceleration: absent Category: category 1 [place] contractions every: 10 min FMR OB H&P: Physical Exam - Physical Exam General: NAD, awake, alert and oriented HEENT: normocephalic and atraumatic, conjunctiva clear, no scleral icterus, grossly normal vision, grossly normal hearing Neck: supple, FROM Heart: RRR, normal S1/S2, no murmurs/rubs/gallops, pulses present, no edema General: CTAB, no respiratory distress, no rales/rhonchi, no wheezing Abdomen: soft, gravid Musculoskeletal: normal gait and station, pulses present, FROM in all four extremities Neurological: cranial nerves II through XII intact, no focal deficit Skin: no rash Psychiatric: intact recent and remote memory, normal mood and affect - Pelvic Exam SVE: 2/50/-2 Ellis score: 5 Membranes: intact Presentation: cephalic by US FMR OB H&P: A/P Discussion: Date/Time: 06/01/202045 29yo @ 41.0wks by LMP #post dates IOL -Ctx q10min, FHT: Cat 1 130/mod/+ accel, no decels -SVE: 2/50/-2 @2230, soft, posterior -Ellis score 5, cytotec 25mg given, will recheck in 3 hours -does not want epidural at this time #Poor Growth -resolved, most recent [place] 22% #Hx of 3rd degree lac -previous , repaired -post infection with wound dehiscence Diet: NPO w/ ice chips Code: Full IVF: LR 125ml/hr PCP: MILES Rodriguez Dispo: Admit to L&D for post dates IOL. This H&P was discussed with Dr. Swann and Dr. Francis who agree with the above documentation and plan. Addendum - Attending - Attending Attestation Date/Time: 06/02/20 0021 I personally evaluated the patient and discussed the management with Dr. Pelaez I agree with the History, Examination, Assessment and Plan documented above with any addition or exceptions noted below. post dates induction. GBS negative. Initial heart tracing category 1. We will proceed with Cytotec for cervical ripening. Reassess in 3 hours and consider placement of second dose of Cytotec versus Pitocin augmentation. otherwise expectant management.
[2020-06-01] MEDS ORDERED: hydrALAZINE 20 MG/ML VIAL SLOW IVP PRN ×2 (21:45→21:48)
[2020-06-01] MEDS ORDERED: NS w/ Oxytocin 10 units 500 ML IV SCH ×2 (21:45)
[2020-06-01] MEDS ORDERED: NS / Oxytocin 40 units/1000ml 1,000 ML IV PRN (21:45)
[2020-06-01] MEDS ORDERED: Lidocaine 1% (PF) 30 ML VIAL SC PRN (21:45)
[2020-06-01] MEDS ORDERED: Ondansetron PF 4 MG/2 ML Vial IVP PRN (21:48)
[2020-06-01] MEDS ORDERED: Promethazine HCl 25 MG/ML VIAL IM PRN (21:48)
[2020-06-01] MEDS: Lactated Ringer's 1,000 ML IV SCH (22:45)
[2020-06-01] MEDS: Misoprostol 100 MCG TAB VAG SCH (23:00)
[2020-06-01 23:11] LABS: Hemoglobin 11.5 g/dL (12.0-16.0); Mean Corpuscular HGB CONC 32.9 g/dL (32.0-36.0); Mean Corpuscular Hemoglobin 25.8 pg (27.0-31.0); Mean Corpuscular Volume 78.5 fL (78.0-98.0); RBC Distribution Width 15.2 % (11.5-14.5); Red Blood Cell (RBC) Count 4.46 mill/uL (4.20-5.40); White Blood Cell (WBC) Count 10.2 thou/uL (4.8-10.8)
[2020-06-01 23:17] VITALS: BMI 28.4
[2020-06-01 23:24] LABS: HBSAg Index 0.16 S/CO (0-0.99); Hep B Surf Ag Non-Reactive S/CO (NonReactive)
[2020-06-01 23:30] LABS: Mean Platelet Volume 12.5 fL (7.4-10.4); Platelet Count 151 thou/uL (130-400)
[2020-06-01 23:35] LABS: Syphilis Antibody Nonreactive (Nonreactive); Syphilis Antibody Index 0.03 S/CO (<1.00 Non-Reactive)
--- NOTE | 2020-06-02 02:02 | PDOC.LDPN ---
Labor & Delivery Progress Note - Subjective Subjective: painful contractions - Objective Vital signs reviewed and normal: yes General: breathing through contractions Uterine fundus: non tender SVE: 70/-2 FHT: category 1, variability present [place] contractions every: 2-4min -: 29yo @ 41.1wks by LMP #post dates IOL -FHT: Cat 1 130/mod/+ accel, no decels -SVE: /-2 -Ellis score 7, painful contractions every 2-4min -does not want epidural at this time #Poor Growth -resolved, most recent [place] 22% #Hx of 3rd degree lac -previous , repaired -post infection with wound dehiscence
[2020-06-02] MEDS: Misoprostol 100 MCG TAB VAG SCH ×4 (02:41→10:31)
[2020-06-02] MEDS ORDERED: Butorphanol Tartrate 1 MG/ML VIAL SLOW IVP PRN (04:17)
--- NOTE | 2020-06-02 04:21 | PDOC.LDPN ---
Labor & Delivery Progress Note - Subjective Subjective: painful contractions - Objective Vital signs reviewed and normal: yes General: NAD, breathing through contractions SVE: 80/-2 FHT: category 1 [place] contractions every: 2-4min -: 29yo @ 41.1wks by LMP #post dates IOL -FHT: Cat 1 130/mod/+ accel, no decels -SVE: 80/-2 -painful contractions every 2-4min, added stadol 1mg prn -does not want epidural at this time #Poor Growth -resolved, most recent [place] 22% #Hx of 3rd degree lac -previous , repaired -post infection with wound dehiscence
[2020-06-02] MEDS: Lactated Ringer's 1,000 ML IV SCH (06:25)
--- NOTE | 2020-06-02 07:57 | PDOC.LDPN ---
Labor & Delivery Progress Note - Subjective Subjective: painful contractions, vaginal pressure - Objective Vital signs reviewed and normal: yes General: NAD, breathing through contractions SVE: /-1 FHT: category 1 [place] contractions every: 2-3 mins Plan: continue plan of care -: 29yo @ 41.1wks by LMP #post dates IOL -FHT: Cat 1 130/mod/+ accel, no decels -SVE: /-1 @ 0700 -painful contractions every 2-4min, has stadol 1mg prn -does not want epidural at this time -consider augmentation if progress stalls #Poor Growth -resolved, most recent [place] 22% #Hx of 3rd degree lac -previous , repaired -post infection with wound dehiscence
[2020-06-02] MEDS ORDERED: Preparation H Ointment 28 GM TUBE PR PRN (10:33)
[2020-06-02] MEDS ORDERED: hydrALAZINE 20 MG/ML VIAL SLOW IVP PRN (10:33)
[2020-06-02] MEDS ORDERED: Ondansetron PF 4 MG/2 ML Vial IVP PRN (10:33)
[2020-06-02] MEDS ORDERED: NS / Oxytocin 40 units/1000ml 1,000 ML IV SCH (10:33)
[2020-06-02] MEDS ORDERED: Benzocaine-Menthol 82.5 ML CAN TOP PRN (10:33)
[2020-06-02] MEDS ORDERED: Milk Of Magnesia 30 ML UDCUP PO PRN (10:33)
[2020-06-02] MEDS ORDERED: Bisacodyl 10 MG SUPP PR PRN (10:33)
[2020-06-02] MEDS ORDERED: diphenhydrAMINE 25 MG CAP PO PRN (10:33)
[2020-06-02] MEDS ORDERED: Lanolin Ointment 7 GM TUBE TOP PRN (10:33)
[2020-06-02] MEDS ORDERED: Promethazine HCl 25 MG/ML VIAL IM PRN (10:33)
--- NOTE | 2020-06-02 10:56 | PDOC.OPDEL ---
OB Operative/Delivery Note Delivery Dr/Surgeon: Dr. Mares Assist: Dr. Rodriguez, Attending Dr. Avelar Pre-Delivery Diagnosis: active labor, medically indicated induction Procedure/Post Delivery Dx: spontaneous vaginal delivery Weeks gestation: 41 (41.1) Anesthesia: local - Additional Findings/Plan Placenta delivered: spontaneous Repaired Obstetrical Laceration: 2nd degree Estimated blood loss: 50cc Compilations/Other Findings: Delivering Physician: Dr. Mares, Dr. Rodriguez Attending: Dr. Avelar Procedure: Spontaneous Vaginal Delivery Anesthesia: Local for Repair EBL: 50 ml Pre-op Diagnosis: 1. Term intrauterine in labor Post-op Diagnosis: 1. Term intrauterine , delivered Indications: A 29y/o female presents to L&D for postdate induction Delivery Note: This is 29yo F @ 41.1wks who delivered a viable F infant at 1012. Following an uneventful antepartum course, a vigorous Female was delivered over an intact perineum in the Right Occipito-posterior position. Anterior Shoulder and then remainder of the body delivered. No nuchal cord. The head was held down and mouth and nares were bulb suctioned. Cord clamped and cut and minimal cord blood collected. Placenta delivered intact with a 3 vessel cord noted. Fundal massage was performed and the fundus was firm. The cervix and vagina were inspected and laceration noted at the posterior vaginal introitus and repaired with 2-0 vicryl in the usual fashion with good approximation and hemostasis after ~3cc lidocaine was injected at site. went to nursery in good condition for routine care. Apgars were 9/9 at 1 & 5 minutes, respectively. Patient tolerated delivery well and went to after routine recovery/care. Post delivery plan: routine recovery Addendum - Attending - Attending Attestation Date/Time: 06/02/20 0146 I, Marc Avelar MD, personally evaluated the patient and discussed indications for the procedure described by Dr. Mares. I directly supervised and participated in the Spontaneous Vaginal Delivery and I agree with the description of procedure as documented above without any addition or exceptions.
[2020-06-02] MEDS: Ibuprofen 800 MG TAB PO SCH ×2 (13:58→21:06)
[2020-06-02] MEDS: Ferrous Sulfate 325 MG TAB PO SCH (15:42)
[2020-06-02] MEDS: Docusate Calcium (SURFAK) 240 MG CAP PO SCH (21:07)
[2020-06-03] MEDS: Ibuprofen 800 MG TAB PO SCH ×2 (05:34→13:41)
--- NOTE | 2020-06-03 07:57 | PDOC.PP ---
Post Progress Note Post Day #: 1 Subjective: tolerating PO, ambulating, pain controlled, little amount of flatus voiding no concerns lochia minimal PO intake tolerated: yes Flatus: yes Ambulation: yes Vital Signs (12 hours) Temp Pulse Resp BP 06/03/20 03:36 97.8 F 75 16 108/62 06/03/20 00:40 97.9 F 70 16 102/69 Weight Weight 61.689 kg - Physical Examination General: NAD Cardiovascular: no m/r/g, RRR Respiratory: clear to auscultation bilaterally, non-labored breathing Abdominal: + bowel sounds, no distention, appropriately TTP Neurological: no gross focal deficits Psychiatric: A&Ox3, normal affect Result Diagrams: 06/01/20 22:20 Additional Labs: Post Labs Hep Bs Antigen Non-Reactive S/CO (NonReactive) 06/01/20 22:20 Blood Type O POSITIVE 06/01/20 22:20 (1) Post-dates Code(s): O48.0 - POST-TERM Status: Acute Qualifiers: Post-term type: 40-42 weeks gestation Qualified Code(s): O48.0 - Post-term - Assessment/Plan 29yo G2 now P2 @ delivered at 41.1wks by for post-dates IOL. #PPD#1 -Voiding, passing small amount of flatus, ambulating, tolerating PO, pain controlled - well -Lochia minimal -Patient has CHIP paperwork she would like filled out today -I will look into this paperwork and make copies for our records #Microcytic anemia -will DC on Fe qd #Constipation -Will add to her regimen miralax, continue docusate Dispo: Possibly home today, pending baby's bilirubin and passing more flatus. Mother will need follow up in 2 weeks, baby in 2-3 days. PCP: MILES Rodriguez Addendum - Attending - Attending Attestation Date/Time: 06/03/20 1217 I personally evaluated the patient and discussed the management with Dr. Rodriguez I agree with the History, Examination, Assessment and Plan documented above with any addition or exceptions noted below. PPD#1 29 yo female s/p on 06/02/20 at 1012 Patient doing well. Lochia appropriate. QBL in 24 hours = 158 mL Request early d/c. Breast feeding well. Incision healing well. No perineal laceration, only posterior vaginal wall. - s/p : Meeting all milestones. Ok to d/c. - Breast feeding: Doing well. Appropriate latch. Previously breast fed. Has br east pump at home. - pp contraception: TBD Ok to d/c to home if infant bili WNL. Follow up with [facility] in 2 wks via phone call. Laurence
[2020-06-03] MEDS ORDERED: Prenatal Vitamin 1 TAB PO SCH (09:00)
[2020-06-03] MEDS ORDERED: Polyethylene Glycol 3350 17 GM Packet PO SCH (09:00)
[2020-06-03 09:57] VITALS: BP 111/57; TEMP 98
[2020-06-03] MEDS ORDERED: Adacel (T-DAP) 0.5 ML SYRINGE IM ONE (10:33)
[2020-06-03] MEDS: Ferrous Sulfate 325 MG TAB PO SCH (10:35)
[2020-06-03] MEDS: Docusate Calcium (SURFAK) 240 MG CAP PO SCH (10:36)
== END 2020-06-03 16:25 | disposition home or self-care (01) | DRG 807 ==
LOC: L&D 19:49 → 3SW 06-02 14:17
PROVIDERS: ADMIT Family Medicine; ATTEND Family Medicine
PROC: 10E0XZZ Delivery of Products of Conception, External Approach (ICD-10-PCS; principal; 2020-06-02)
PROC: 0KQM0ZZ Repair Perineum Muscle, Open Approach (ICD-10-PCS; 2020-06-02)
PROC: 3E033VJ Introduction of Other Hormone into Peripheral Vein, Percutaneous Approach (ICD-10-PCS; 2020-06-02)
DX: O48.0 Post-term pregnancy (principal); Z37.0 Single live birth; Z3A.41 41 weeks gestation of pregnancy; O36.5930 Maternal care for other known or suspected poor fetal growth, third trimester, not applicable or unspecified; O70.1 Second degree perineal laceration during delivery; O90.81 Anemia of the puerperium; D50.9 Iron deficiency anemia, unspecified; K59.00 Constipation, unspecified
CPT/HCPCS: 36415; 85027; 86780; 86850; 86900; 86901; 87340; 87635; J0595; J2405; U0003